=== PATIENT | female | born 1990 | race Caucasian/White ===

== ENCOUNTER 2023-09-18 16:08 | Outpatient (CLI) | payer OTHER, SELFPAY ==
[2023-09-18 18:20] LABS: Hemoglobin A1C 5.3 % (<5.7)
[2023-09-23 07:23] LABS: Prolactin 9.2 ng/mL (***)
== END 2023-09-18 16:09 | disposition home or self-care (01) ==
PROVIDERS: Visit Provider Nurse Practitioner Family
DX: N97.9 Female infertility, unspecified (principal)
CPT/HCPCS: 36415; 83036; 84144; 84146; 84443

== ENCOUNTER 2023-12-14 06:35 | Outpatient (CLI) | payer OTHER, SELFPAY ==
--- NOTE | ~2023-12-14 | XR_ITS ---
EXAMINATION: XR hysterosalpingogram DATE: 12/14/2023 08:34 INDICATION: Female infertility, unspecified. TECHNIQUE: Fluoroscopy was performed by the radiologist during contrast infusion into the endometrial cavity of the uterus by the primary physician. Fluoroscopy exposure time was 0.2 minutes. The total number of images was 14. FINDINGS: The angle between the uterine horns is 88 degrees suggesting that the uterine morphology is septate. The fallopian tubes are normal in caliber. There is normal free intraperitoneal spillage of contrast either side. IMPRESSION: 1. Normal fallopian tubes. 2. Septate uterus. Reviewed, dictated and finalized at location A.
[2023-12-14 07:55] LABS: Beta HCG Quantitative < 2.39 mIU/ML
--- NOTE | 2023-12-14 09:08 | W.PM.PROC2 ---
Procedure Note - Detailed Date of Procedure 12/14/23 Pre-op Diagnosis infertitility Post-op Diagnosis Same Procedure Performed Hysterosalpingogram Surgeon Anant Mcguire MD Anesthesia None Indications infertility Findings Uterine cavity with large septum vs bicornuate uterus, bilateral fill and spill and normal caliber of fallopian tubes. Description of Procedure After informed consent obtained. She was placed in lithotomy position. Speculum inserted. Cervix cleansed with betadine. Attempted to pass canula in cervix, unable to advance, cervical os dilator inserted. Single tooth tenaculum placed on anterior cervix. The canula was inserted successfully and balloon inflated. Radiologist performed fluoroscopy. After completed. Balloon deflated. Canula and tenaculum removed. Hemostasis noted at tenaculum site. Patient tolerated procedure well. Discussed her findings and that there was no tubal etiology for infertility. Estimated Blood Loss 0 Drains No Packing No Pathology None sent Complications No immediate complications Condition Stable Disposition Other (Home) [facility] Billing Surgery - Charge Forward: Surgery Billing
== END 2023-12-14 06:36 | disposition home or self-care (01) ==
LOC: ANHIMG 06:37
PROVIDERS: Visit Provider Obstetrics & Gynecology
DX: Q51.28 Other and unspecified doubling of uterus (principal)
CPT/HCPCS: 36415; 58340; 74740; 84702; Q9966